=== PATIENT | female | born 1995 | race American Indian/Alaskan Native ===

== ENCOUNTER 2018-02-15 15:29 | Emergency (ER) | payer MEDICAID ==
[2018-02-15 16:28] LABS: HCG Qualitative,Urine Positive (Negative)
[2018-02-15 16:38] LABS: Basophils % (Auto) 0.6 % (0.0-1.8); Eosinophils # (Auto) 0.3 K/mm3 (0.0-0.4); Eosinophils % (Auto) 4.8 % (0.0-4.3); Hematocrit 34.4 % (30.3-42.9); Hemoglobin 11.2 gm/dl (10.1-14.3); Lymphocytes # (Auto) 1.3 K/mm3 (1.2-5.4); Lymphocytes % (Auto) 23.4 % (13.4-35.0); Mean Corpuscular HGB Conc 33 % (30-34); Mean Corpuscular Hemoglobin 27 pg (28-32); Mean Corpuscular Volume 82 fl (79-97); Monocytes # (Auto) 0.5 K/mm3 (0.0-0.8); Monocytes % (Auto) 9.2 % (0.0-7.3); Platelet Count 266 K/mm3 (140-440); Red Blood Count 4.22 M/mm3 (3.65-5.03); Red Cell Distribution Width 13.8 % (13.2-15.2)
[2018-02-15 16:48] LABS: INR 0.92 (0.87-1.13)
[2018-02-15 16:49] LABS: Partial Thromboplastin Time 31.3 Sec. (24.2-36.6)
[2018-02-15 16:57] LABS: BUN/Creatinine Ratio 18; Blood Urea Nitrogen 9 mg/dL (7-17); Hemolysis Index 7
--- NOTE | 2018-02-16 00:12 | Emergency Department Report ---
ED Female HPI - General Chief complaint: Vaginal Bleeding Stated complaint: 8WK PREG/ BLEEDING/ABD PAIN Time Seen by Provider: 02/15/18 23:14 Source: patient Mode of arrival: Ambulatory Limitations: No Limitations - History of Present Illness Initial comments: 22-year-old female currently approximately 8 weeks with no care or previous US presents to the hospital complaining of vaginal bleeding started at 2 PM today patient having spotting with passage of clots intermittently. No pain at this time but intermittent suprapubic cramping reported. Patient denies fever, lightheadedness, dizziness, or syncope. Her first scheduled visit is March 03 with Amanda Bonilla. This is her second with history of one miscarriage in the past. - Related Data Allergies Allergy/AdvReac Type Severity Reaction Status Date / Time No Known Allergies Allergy Unverified 02/15/18 15:56 ED Review of Systems ROS: Stated complaint: 8WK PREG/ BLEEDING/ABD PAIN Other details as noted in HPI Comment: All other systems reviewed and negative ED Past Medical Hx - Surgical History Past Surgical History?: No - Social History Smoking Status: Never Smoker Substance Use Type: None ED Physical Exam - General Limitations: No Limitations - Other Other exam information: General: No limitations, patient is alert in no acute distress Head exam: Atraumatic, normocephalic Eyes exam: Normal appearance, pink conjunctivae ENT: Moist mucous membrane, normal oropharynx Neck exam: Normal inspection, full range of motion, no meningismus nontender Respiratory exam: Clear to auscultation bilateral, no wheezes, rales, crackles Cardiovascular: Normal rate and rhythm, normal heart sounds Abdomen: Soft, nondistended, and nontender, with normal bowel sounds, no rebound, or guarding Extremity: Full range of motion normal inspection no deformity Back: Normal Inspection, full range of motion, no tenderness Neurologic: Alert, oriented x3, cranial nerves intact, no motor or sensory deficit Psychiatric: normal affect, normal mood Skin: Warm, dry, intact ED Course Vital Signs 02/15/18 15:50 Temperature 98.7 F Pulse Rate 84 Blood Pressure 113/61 ED Medical Decision Making - Lab Data Result diagrams: 02/15/18 16:13 02/15/18 16:13 Lab Results 02/15/18 02/15/18 02/15/18 Range/Units 16:13 16:13 16:13 WBC 5.5 (4.5-11.0) K/mm3 RBC 4.22 (3.65-5.03) M/mm3 Hgb 11.2 (10.1-14.3) gm/dl Hct 34.4 (30.3-42.9) % MCV 82 (79-97) fl MCH 27 L (28-32) pg MCHC 33 (30-34) % RDW 13.8 (13.2-15.2) % Plt Count 266 (140-440) K/mm3 Lymph % (Auto) 23.4 (13.4-35.0) % [place] % (Auto) 9.2 H (0.0-7.3) % Eos % (Auto) 4.8 H (0.0-4.3) % Baso % (Auto) 0.6 (0.0-1.8) % Lymph # 1.3 (1.2-5.4) K/mm3 [place] # 0.5 (0.0-0.8) K/mm3 Eos # 0.3 (0.0-0.4) K/mm3 Baso # 0.0 (0.0-0.1) K/mm3 Seg Neutrophils % 62.0 (40.0-70.0) % Seg Neutrophils # 3.4 (1.8-7.7) K/mm3 PT 12.8 (12.2-14.9) Sec. INR 0.92 (0.87-1.13) APTT 31.3 (24.2-36.6) Sec. Sodium 139 (137-145) mmol/L Potassium 4.1 (3.6-5.0) mmol/L Chloride 101.2 (98-107) mmol/L Carbon Dioxide 25 (22-30) mmol/L Anion Gap 17 mmol/L BUN 9 (7-17) mg/dL Creatinine 0.5 L (0.7-1.2) mg/dL Estimated GFR > 60 ml/min BUN/Creatinine Ratio 18 % Glucose 77 (65-100) mg/dL Calcium 9.0 (8.4-10.2) mg/dL HCG, Quant (0-4) mIU/mL Urine HCG, Qual (Negative) Blood Type 02/15/18 02/15/18 02/15/18 Range/Units 16:15 23:33 23:33 WBC (4.5-11.0) K/mm3 RBC (3.65-5.03) M/mm3 Hgb (10.1-14.3) gm/dl Hct (30.3-42.9) % MCV (79-97) fl MCH (28-32) pg MCHC (30-34) % RDW (13.2-15.2) % Plt Count (140-440) K/mm3 Lymph % (Auto) (13.4-35.0) % [place] % (Auto) (0.0-7.3) % Eos % (Auto) (0.0-4.3) % Baso % (Auto) (0.0-1.8) % Lymph # (1.2-5.4) K/mm3 [place] # (0.0-0.8) K/mm3 Eos # (0.0-0.4) K/mm3 Baso # (0.0-0.1) K/mm3 Seg Neutrophils % (40.0-70.0) % Seg Neutrophils # (1.8-7.7) K/mm3 PT (12.2-14.9) Sec. INR (0.87-1.13) APTT (24.2-36.6) Sec. Sodium (137-145) mmol/L Potassium (3.6-5.0) mmol/L Chloride (98-107) mmol/L Carbon Dioxide (22-30) mmol/L Anion Gap mmol/L BUN (7-17) mg/dL Creatinine (0.7-1.2) mg/dL Estimated GFR ml/min BUN/Creatinine Ratio % Glucose (65-100) mg/dL Calcium (8.4-10.2) mg/dL HCG, Quant 9721 H (0-4) mIU/mL Urine HCG, Qual Positive A (Negative) Blood Type A POSITIVE - Radiology Data Radiology results: report reviewed Transvaginal/pelvic ultrasound: Single living intrauterine gestational sac approximately 7 weeks and 4 days. Positive heart of 157. No evidence of subchorionic hemorrhage. - Medical Decision Making Patient will be discharged home with diagnosis for miscarriage and follow-up with her [facility] doctor. Rh+. RhoGAM not necessary H&H normal therefore blood transfusion not necessary Patient reports that bleeding has decreased since initial onset - Differential Diagnosis threatened miscarriage, ectopic, miscarriage Critical Care Time: No Critical care attestation.: If time is entered above; I have spent that time in minutes in the direct care of this critically ill patient, excluding procedure time. ED Disposition Clinical Impression: Threatened miscarriage in early , 7 weeks gestation of Disposition: TO HOME OR SELFCARE Is pt being admited?: No Does the pt Need Aspirin: No Condition: Stable Instructions: Threatened Miscarriage (ED) Additional Instructions: You may take [id number] vitamins. Tylenol only as needed for pain. Pelvic rest/no sex recommended until cleared by [facility]. Return if symptoms worsen as indicated by your discharge instructions. Follow-up with your [facility] doctor Referrals: KB BONILLA MD [Staff Physician] - 3-5 Days Time of Disposition: 00:43
--- NOTE | 2018-02-16 00:36 | Ultrasound Report ---
FINAL REPORT PROCEDURE: US OB TRANSVAGINAL TECHNIQUE: Real-time transvaginal sonography of the uterus, placenta, amniotic fluid, adnexa, and fetus was performed with image documentation. Measurements were obtained to determine age/size. M-mode Doppler was used to document heartbeat. CPT 80803 HISTORY: vag bleeding aprox 8 wks COMPARISON: Transabdominal OB ultrasound also performed today. FINDINGS: This report was generated using images from both the transabdominal and a transvaginal OB ultrasound both of which were performed today. There is a single living intrauterine gestation visualized with a heart rate of 157 beats per minute. Yolk sac is visualized. No evidence of subchorionic hemorrhage. [place]-rump length measurement 1.3 centimeter corresponds to an age of 7 weeks 4 days placing EDC at 10/01/2018 +/-0.5 weeks. Fetus currently too small to evaluate anatomy. No gross abnormality is seen. Shape of the gestational sac appears normal. The right and left ovaries are unremarkable. No abnormal adnexal masses are seen. IMPRESSION: There is a single living intrauterine gestation present. By crown-rump length measurement the estimated age is 7 weeks 4 days. This places EDC at 10/01/2018 +/-0.5 weeks. Fetus currently too small to assess anatomy. No gross abnormality is seen. No evidence of subchorionic hemorrhage.
--- NOTE | 2018-02-16 00:37 | Ultrasound Report ---
FINAL REPORT PROCEDURE: US OB < = 14 WEEKS FETUS TECHNIQUE: Real-time transabdominal sonography of the uterus, placenta, amniotic fluid, adnexa, and fetus was performed with image documentation. Measurements were obtained to determine age/size. M-mode Doppler was used to document heartbeat. CPT 81776 HISTORY: vag bleeding aprox 8 wks COMPARISON: Transvaginal pelvic ultrasound also performed today. FINDINGS: This report was generated using images from both the transabdominal and a transvaginal OB ultrasound both of which were performed today. There is a single living intrauterine gestation visualized with a heart rate of 157 beats per minute. Yolk sac is visualized. No evidence of subchorionic hemorrhage. [place]-rump length measurement 1.3 centimeter corresponds to an age of 7 weeks 4 days placing EDC at 10/01/2018 +/-0.5 weeks. Fetus currently too small to evaluate anatomy. No gross abnormality is seen. Shape of the gestational sac appears normal. The right and left ovaries are unremarkable. No abnormal adnexal masses are seen. IMPRESSION: There is a single living intrauterine gestation present. By crown-rump length measurement the estimated age is 7 weeks 4 days. This places EDC at 10/01/2018 +/-0.5 weeks. Fetus currently too small to assess anatomy. No gross abnormality is seen. No evidence of subchorionic hemorrhage.
[2018-02-16 00:51] VITALS: BP 118/78
== END 2018-02-16 01:07 | disposition home or self-care (01) ==
LOC: ED 15:29
DX: O20.0 Threatened abortion (principal); Z3A.01 Less than 8 weeks gestation of pregnancy
CPT/HCPCS: 36415; 76801; 76817; 80048; 81025; 84702; 85025; 85610; 85730; 86850; 86900; 86901; 99284